=== PATIENT | female | born 1940 | race African-American/Black ===

== ENCOUNTER 2017-07-18 04:35 | Inpatient (IN) | payer OTHER, BC ==
[~2017-07-18] VITALS: Ht 160 cm; Wt 84.8 kg
[2017-07-18] VITALS (7 sets, daily range): BP systolic 126–158
[2017-07-18] MEDS ORDERED: ASPIRIN 325 MG TABLET PO ONE (05:00)
[2017-07-18] MEDS ORDERED: NITROGLYCERIN 0.4 MG TAB.SUBL SL ONE (05:15)
[2017-07-18] MEDS ORDERED: NACL 0.9% 1,000 ML IV ONE (05:15)
[2017-07-18 05:19] LABS: BASOPHILS % (AUTO) 0.7 % (0.0-2.0); EOSINOPHILS # (AUTO) 0.2 K/uL (0.0-0.4); EOSINOPHILS % (AUTO) 4.1 % (0.0-4.0); HEMATOCRIT 43.9 % (36-48); LYMPHOCYTES # (AUTO) 1.8 K/uL (1.0-5.5); LYMPHOCYTES % (AUTO) 35.1 % (20.5-51.5); MEAN CORPUSCULAR HEMOGLOBIN 28 pg (27-31); MEAN CORPUSCULAR HGB CONC 32 % (32-36); MEAN CORPUSCULAR VOLUME 89 fL (79.0-98.0); MONOCYTES # (AUTO) 0.6 K/uL (0.0-1.0); MONOCYTES % (AUTO) 10.9 % (1.7-9.3); NEUTROPHILS # (AUTO) 2.5 K/uL (1.8-7.7); NEUTROPHILS % (AUTO) 49.2 % (40.0-70.0); PLATELET COUNT (AUTO) 244 K/uL (130-430); RED BLOOD CELL COUNT(AUTO) 4.95 MIL/uL (4.2-6.2); RED CELL DISTRIBUTION WIDTH 13.8 % (9.0-15.0); WHITE BLOOD COUNT (AUTO) 5.1 K/uL (4.8-10.8)
[2017-07-18 05:32] LABS: ANION GAP 7 (5-15); CALCIUM 10.3 mg/dL (8.4-11.0); CHLORIDE 104 mmol/L (98-107); CREATININE 1.11 mg/dL (0.55-1.30); GLUCOSE 98 mg/dL (70-99); POTASSIUM 3.9 mmol/L (3.5-5.1); SODIUM SERUM 138 mmol/L (136-145); TOTAL BILIRUBIN 0.5 mg/dL (0.0-1.0); UREA NITROGEN, BLOOD 22 mg/dL (8-21)
[2017-07-18 05:33] LABS: ALANINE AMINOTRANSFERASE 181 U/L (12-78); ALBUMIN 3.4 g/dL (3.4-4.8); ASPARTATE AMINOTRANSFERASE 93 U/L (10-37)
[2017-07-18 05:58] LABS: BILIRUBIN,URINE NEGATIVE (NEGATIVE); BLOOD, URINE NEGATIVE (NEGATIVE); CLARITY/URINE CLEAR (CLEAR); COLOR,URINE YELLOW (YELLOW); GLUCOSE,URINE NEGATIVE (NEGATIVE); KETONES,URINE NEGATIVE (NEGATIVE); LEUKOCYTE ESTERASE ,URINE TRACE (NEGATIVE); NITRITE, URINE NEGATIVE (NEGATIVE); PH,URINE 5.5 (5.0-8.0); PROTEIN URINE NEGATIVE (NEGATIVE); UROBILINOGEN,URINE 0.2 (0.2-1.0)
[2017-07-18 06:05] LABS: BACTERIA,URINE FEW /HPF (None Seen); RBC,URINE 0-3 /HPF (0-3); WBC,URINE 0-3 /HPF (0-3)
[2017-07-18] MEDS ORDERED: OMEP20CA10 PO (06:08)
[2017-07-18] MEDS ORDERED: FERR-57 PO (06:08)
[2017-07-18] MEDS ORDERED: CHOL100053 PO (06:08)
[2017-07-18] MEDS ORDERED: AMLO5TAB4 PO (06:08)
[2017-07-18] MEDS ORDERED: LOSA100T11 PO (06:08)
[2017-07-18] MEDS ORDERED: LIP10 PO (06:08)
[2017-07-18] MEDS ORDERED: MORPHINE 4 MG/ML INJ. SYRINGE IVP ONE (06:30)
[2017-07-18] MEDS: traMADol HCL HCL 50 MG TABLET (ULTRAM) PO PRN ×2 (11:40→20:09)
[2017-07-18] MEDS ORDERED: ONDANSETRON HCL 4 MG/2 ML VIAL IVP PRN (11:45)
[2017-07-18] MEDS ORDERED: ACETAMINOPHEN 325 MG TABLET PO PRN (11:45)
[2017-07-18] MEDS ORDERED: ZOLPIDEM TARTRATE 5 MG TABLET PO PRN (11:45)
[2017-07-18] MEDS ORDERED: PANTOPRAZOLE SODIUM 40 MG TAB PO ONE (12:00)
[2017-07-18] MEDS: PANTOPRAZOLE SODIUM 40 MG TAB PO SCH (20:09)
[2017-07-19 06:10] LABS: BASOPHILS % (AUTO) 0.5 % (0.0-2.0); EOSINOPHILS # (AUTO) 0.1 K/uL (0.0-0.4); EOSINOPHILS % (AUTO) 2.9 % (0.0-4.0); HEMATOCRIT 40.6 % (36-48); HEMOGLOBIN 13.3 g/dL (12.0-16.0); LYMPHOCYTES # (AUTO) 1.6 K/uL (1.0-5.5); LYMPHOCYTES % (AUTO) 32.2 % (20.5-51.5); MEAN CORPUSCULAR HEMOGLOBIN 29 pg (27-31); MEAN CORPUSCULAR HGB CONC 33 % (32-36); MEAN CORPUSCULAR VOLUME 89 fL (79.0-98.0); MONOCYTES # (AUTO) 0.6 K/uL (0.0-1.0); MONOCYTES % (AUTO) 11.3 % (1.7-9.3); NEUTROPHILS # (AUTO) 2.6 K/uL (1.8-7.7); NEUTROPHILS % (AUTO) 53.1 % (40.0-70.0); PLATELET COUNT (AUTO) 242 K/uL (130-430); RED BLOOD CELL COUNT(AUTO) 4.55 MIL/uL (4.2-6.2); RED CELL DISTRIBUTION WIDTH 13.4 % (9.0-15.0); WHITE BLOOD COUNT (AUTO) 4.9 K/uL (4.8-10.8)
[2017-07-19 06:40] LABS: ALANINE AMINOTRANSFERASE 196 U/L (12-78); ANION GAP 3 (5-15); ASPARTATE AMINOTRANSFERASE 114 U/L (10-37); CALCIUM 10.2 mg/dL (8.4-11.0); CHLORIDE 105 mmol/L (98-107); CHOLESTEROL 149 mg/dL (<200); CREATININE 0.87 mg/dL (0.55-1.30); FREE T4 (FREE THYROXINE) 1.1 ng/dL (0.6-1.6); GLUCOSE 87 mg/dL (70-99); HDL CHOLESTEROL 49 mg/dL (>55); LDL CHOLESTEROL 75 mg/dL (<100); POTASSIUM 4.1 mmol/L (3.5-5.1); SODIUM SERUM 134 mmol/L (136-145); THYROID STIMULATING HORMONE 1.18 uIu/mL (0.34-4.82); TOTAL BILIRUBIN 0.6 mg/dL (0.0-1.0); TRIGLYCERIDES 112 mg/dL (30-150); UREA NITROGEN, BLOOD 13 mg/dL (8-21)
[2017-07-19 08:04] VITALS: BP_SYST 138
[2017-07-19] MEDS: PANTOPRAZOLE SODIUM 40 MG TAB PO SCH (08:43)
[2017-07-19] MEDS ORDERED: amLODIPine BESYLATE 5 MG TABLET PO SCH (09:00)
[2017-07-19] MEDS ORDERED: FERROUS SULFATE 325 MG TABLET.DR PO SCH (09:00)
[2017-07-19] MEDS ORDERED: LOSARTAN POTASSIUM 50 MG TABLET (COZAAR) PO SCH (09:00)
[2017-07-19] MEDS ORDERED: ATORVASTATIN 10 MG TABLET PO SCH (09:00)
[2017-07-19 11:42] VITALS: BP_SYST 125
[2017-07-19 11:56] VITALS: BP_SYST 125
== END 2017-07-19 12:40 | disposition home or self-care (01) | DRG 392 ==
LOC: SED 04:35 → STU 06:14
PROVIDERS: ADMIT Internal Medicine; ATTEND Internal Medicine
DX: K44.9 Diaphragmatic hernia without obstruction or gangrene (principal); E21.3 Hyperparathyroidism, unspecified; I10 Essential (primary) hypertension; E78.5 Hyperlipidemia, unspecified; K21.9 Gastro-esophageal reflux disease without esophagitis; Z96.653 Presence of artificial knee joint, bilateral; E66.9 Obesity, unspecified; T46.6X5A Adverse effect of antihyperlipidemic and antiarteriosclerotic drugs, initial encounter; Z88.0 Allergy status to penicillin; Z79.899 Other long term (current) drug therapy; Z98.42 Cataract extraction status, left eye; Z98.41 Cataract extraction status, right eye; Z82.49 Family history of ischemic heart disease and other diseases of the circulatory system; Z90.710 Acquired absence of both cervix and uterus; Z90.49 Acquired absence of other specified parts of digestive tract; Y92.89 Other specified places as the place of occurrence of the external cause; Z68.33 Body mass index [BMI] 33.0-33.9, adult; Z87.891 Personal history of nicotine dependence
CPT/HCPCS: 36415; 70450-TC; 71045; 71250-TC; 76700-TC; 80053; 80061; 81000-TC; 84439; 84443-TC; 84484; 85025; 85379; 87086; 93005; 93306; 96360; 99285

== ENCOUNTER 2021-08-04 07:38 | Inpatient (IN) | payer OTHER, BC ==
[2021-08-03 20:10] VITALS: BP_SYST 130
[~2021-08-04] VITALS: Ht 160 cm; Wt 88.7 kg
[~2021-08-04 07:38] MED LIST: AMLO5TAB4 PO; CHOL100053 PO; FERR-57 PO; LOSA100T3 PO; OMEP20CA15 PO
--- NOTE | 2021-08-04 07:40 | NUR ---
Placed in room 3 . Placed on process steward, blood pressure machine and pulse oximeter. To gown for exam. Side rails up. Report given to UZMA LEE.
[2021-08-04 07:45] VITALS: BP_SYST 153
--- NOTE | 2021-08-04 07:47 | NUR ---
ER DR. SAINZ EXAMINING PT
[2021-08-04] MEDS ORDERED: PANTOPRAZOLE SODIUM 40 MG/VIAL (PROTONIX) IVP ONE (08:00)
[2021-08-04] MEDS ORDERED: METOCLOPRAMIDE HCL 10 MG/2 ML VIAL IVP ONE (08:00)
[2021-08-04] MEDS ORDERED: NACL 0.9% 1,000 ML IV ONE (08:00)
[2021-08-04 08:10] LABS: BILIRUBIN,URINE 1+ (NEGATIVE); BLOOD, URINE 1+ (NEGATIVE); COLOR,URINE YELLOW (YELLOW); GLUCOSE,URINE NEGATIVE (NEGATIVE); KETONES,URINE 2+ (NEGATIVE); LEUKOCYTE ESTERASE ,URINE TRACE (NEGATIVE); NITRITE, URINE NEGATIVE (NEGATIVE); PROTEIN URINE 2+ (NEGATIVE); UROBILINOGEN,URINE 0.2 (0.2-1.0)
[2021-08-04 08:12] LABS: BASOPHILS # (AUTO) 0.2 K/uL (0.0-0.2); EOSINOPHILS % (AUTO) 0.4 % (0.0-4.0); HEMATOCRIT 45.9 % (36-48); HEMOGLOBIN 14.7 g/dL (12.0-16.0); LYMPHOCYTES # (AUTO) 1.4 K/uL (1.0-5.5); LYMPHOCYTES % (AUTO) 12.7 % (20.5-51.5); MEAN CORPUSCULAR HEMOGLOBIN 27 pg (27-31); MEAN CORPUSCULAR HGB CONC 32 % (32-36); MEAN CORPUSCULAR VOLUME 84 fL (79.0-98.0); MONOCYTES # (AUTO) 0.4 K/uL (0.0-1.0); NEUTROPHILS # (AUTO) 8.7 K/uL (1.8-7.7); NEUTROPHILS % (AUTO) 80.9 % (40.0-70.0); PLATELET COUNT (AUTO) 286 K/uL (130-430); RED BLOOD CELL COUNT(AUTO) 5.48 MIL/uL (4.2-6.2); RED CELL DISTRIBUTION WIDTH 15.4 % (9.0-15.0); WHITE BLOOD COUNT (AUTO) 10.7 K/uL (4.8-10.8)
[2021-08-04 08:15] LABS: CLARITY/URINE SLIGHTLY HAZY (CLEAR)
[2021-08-04 08:25] LABS: ANION GAP 10 (5-15); CALCIUM 8.6 mg/dL (8.4-11.0); CHLORIDE 96 mmol/L (98-107); CREATININE 1.32 mg/dL (0.55-1.30); GLUCOSE 109 mg/dL (70-99); POTASSIUM 3.9 mmol/L (3.5-5.1); SODIUM SERUM 132 mmol/L (136-145); UREA NITROGEN, BLOOD 13 mg/dL (8-21)
[2021-08-04 08:42] LABS: ALANINE AMINOTRANSFERASE 18 U/L (12-78); ALBUMIN 3.9 g/dL (3.4-4.8); ASPARTATE AMINOTRANSFERASE 17 U/L (10-37); LIPASE 50 U/L (73-393); TOTAL BILIRUBIN 0.6 mg/dL (0.0-1.0)
[2021-08-04 08:49] LABS: BACTERIA,URINE FEW /HPF (None Seen); WBC,URINE 0-3 /HPF (0-3)
[2021-08-04] MEDS ORDERED: ONDANSETRON HCL 4 MG/2 ML VIAL IVP ONE (09:30)
[2021-08-04] MEDS ORDERED: ASPIRIN 325 MG TABLET PO ONE (09:30)
[2021-08-04] MEDS ORDERED: ENOXAPARIN SODIUM 80 MG/0.8 ML SYRINGE SUBCUT ONE (09:30)
[2021-08-04] MEDS ORDERED: NITROGLYCERIN 1 INCH (GM) OINT. TP ONE (09:30)
[2021-08-04] MEDS ORDERED: MORPHINE 4 MG INJ. 4 MG/ML VIAL IVP ONE (09:30)
--- NOTE | 2021-08-04 09:39 | NUR ---
Admit bed requested Patient will be admitted to care of . Admitted to TELEMETRY unit. Diagnosis ABDOMINAL PAIN Inpatient (Yes or No) YES Observation (Yes or No) NO Orientation concerns or request close to nursing station (Yes or No) NO Covid Status PENDING On vent or bipap NO Isolation requirements NO Needs a sitter NO From Home (Yes or if No enter name of facility) YES Requires Dialysis (Yes or No) NO Med Rec Completed (Yes of No) YES
[2021-08-04] MEDS ORDERED: SUCR1TAB78 PO (10:04)
[2021-08-04] MEDS ORDERED: NOR10 PO (10:04)
[2021-08-04] MEDS ORDERED: LIP10 PO (10:04)
[2021-08-04] MEDS ORDERED: ONDA4TAB55 PO (10:04)
[2021-08-04] MEDS ORDERED: PRO40 PO (10:04)
--- NOTE | 2021-08-04 10:04 | NUR ---
Medication reconciliation completed with information provided by [facility] BIB PATIENT. Any prior medication reconciliation on file was reviewed and corrected.
--- NOTE | 2021-08-04 10:47 | NUR ---
Stable. VSS. Pain has decreased Has been medicated as ordered To be admitted Primary has seen Awaiting bed on floor
[2021-08-04] MEDS: NACL 0.9% 1,000 ML IV SCH ×2 (11:57→21:28)
[2021-08-04] MEDS ORDERED: ATORVASTATIN 10 MG TABLET PO ONE (12:00)
[2021-08-04] MEDS ORDERED: LOSARTAN POTASSIUM 50 MG TABLET (COZAAR) PO ONE (12:00)
[2021-08-04] MEDS: PANTOPRAZOLE SODIUM 40 MG TAB PO SCH (12:27)
[2021-08-04] MEDS: SUCRALFATE 1 GM TABLET PO SCH ×4 (12:27→21:00)
--- NOTE | 2021-08-04 15:41 | NUR ---
Stable. VSS. C/O pain substernal. MD to be called. Gastro has seen. Awaiting bed on floor.
[2021-08-04] MEDS ORDERED: ACETAMINOPHEN 325 MG TABLET PO PRN (16:15)
[2021-08-04] MEDS ORDERED: MORPHINE 2 MG/ML INJ. SYRINGE IVP PRN (16:15)
--- NOTE | 2021-08-04 16:15 | NUR ---
Pt medicated with Zofran 4mg IVP and Morphine 4 mg IVP as ordered by Dr Quinones, well tolerated.
[2021-08-04] MEDS ORDERED: ONDANSETRON HCL 4 MG/2 ML VIAL ONE (16:17)
[2021-08-04] MEDS ORDERED: MORPHINE 4 MG INJ. 4 MG/ML VIAL ONE (16:18)
[2021-08-04] MEDS: ONDANSETRON HCL 4 MG/2 ML VIAL IVP PRN (16:56)
[2021-08-04] MEDS: MORPHINE 4 MG INJ. 4 MG/ML VIAL IVP PRN ×2 (16:56→21:45)
[2021-08-04] MEDS: METOCLOPRAMIDE HCL 10 MG TABLET PO SCH ×2 (17:00→21:30)
--- NOTE | 2021-08-04 19:56 | NUR ---
ADMIT NOTE Received pt from ER with a diagnosis of abdominal pain. Admission process initiated. patient oriented to pain management, safety and call light-teach back done.
[2021-08-04 20:18] VITALS: BP_SYST 130
--- NOTE | 2021-08-04 20:50 | NUR ---
Dr. Quinones/Cardiac Diet EHR showing NPO diet. Called Dr. Quinones who stated patient should be on cardiac diet.
[2021-08-04] MEDS ORDERED: PANTOPRAZOLE SODIUM 40 MG/VIAL (PROTONIX) IVP SCH (21:00)
[2021-08-05 00:30] VITALS: BP_SYST 145
--- NOTE | 2021-08-05 05:54 | NUR ---
CONSULT: CONSULT CALLED FOR DR. OTT I SPOKE WITH MELO GARCIA REASON FOR CONSULT: EIGASTRIC PAIN REQUESTING CONSULT: DR. WILSON BLENDER CONVEYOR OPERATOR PHONE NUMBER: [phone]
--- NOTE | 2021-08-05 05:56 | NUR ---
CONSULT: CONSULT CALLED FOR DR. GRIFFIN I SPOKE WITH MELO GARCIA REASON FOR CONSULT: CHEST PAIN REQUESTING CONSULT: DR. WILSON WAD COMPRESSOR OPERATOR ADJUSTER PHONE NUMBER" [phone]
[2021-08-05] MEDS: MORPHINE 4 MG INJ. 4 MG/ML VIAL IVP PRN ×2 (06:32→18:10)
[2021-08-05] MEDS: NACL 0.9% 1,000 ML IV SCH (06:43)
[2021-08-05] MEDS: ONDANSETRON HCL 4 MG/2 ML VIAL IVP PRN (06:43)
[2021-08-05] MEDS: METOCLOPRAMIDE HCL 10 MG TABLET PO SCH ×4 (06:43→20:37)
[2021-08-05] MEDS ORDERED: SIMETHICONE 40 MG/0.6 ML ML ONE (07:07)
[2021-08-05] MEDS ORDERED: MIDAZOLAM HCL 5 MG/5 ML VIAL ONE (07:08)
[2021-08-05] MEDS ORDERED: MEPERIDINE 100 MG INJ. 100 MG/ML VIAL ONE (07:08)
[2021-08-05 07:32] LABS: ANION GAP 13 (5-15); CALCIUM 7.5 mg/dL (8.4-11.0); CHLORIDE 99 mmol/L (98-107); GLUCOSE 85 mg/dL (70-99); POTASSIUM 3.5 mmol/L (3.5-5.1); SODIUM SERUM 133 mmol/L (136-145); UREA NITROGEN, BLOOD 13 mg/dL (8-21)
[2021-08-05 07:33] LABS: BASOPHILS % (AUTO) 0.3 % (0.0-2.0); EOSINOPHILS % (AUTO) 0.5 % (0.0-4.0); LYMPHOCYTES # (AUTO) 1.6 K/uL (1.0-5.5); LYMPHOCYTES % (AUTO) 17.7 % (20.5-51.5); MEAN CORPUSCULAR HEMOGLOBIN 27 pg (27-31); MEAN CORPUSCULAR HGB CONC 33 % (32-36); MEAN CORPUSCULAR VOLUME 84 fL (79.0-98.0); MONOCYTES # (AUTO) 0.7 K/uL (0.0-1.0); MONOCYTES % (AUTO) 7.2 % (1.7-9.3); NEUTROPHILS # (AUTO) 6.7 K/uL (1.8-7.7); NEUTROPHILS % (AUTO) 74.3 % (40.0-70.0); PLATELET COUNT (AUTO) 257 K/uL (130-430); RED BLOOD CELL COUNT(AUTO) 4.79 MIL/uL (4.2-6.2); WHITE BLOOD COUNT (AUTO) 9.1 K/uL (4.8-10.8)
[2021-08-05 07:41] LABS: ALANINE AMINOTRANSFERASE 20 U/L (12-78); ALBUMIN 3.4 g/dL (3.4-4.8); ASPARTATE AMINOTRANSFERASE 19 U/L (10-37); TOTAL BILIRUBIN 0.4 mg/dL (0.0-1.0)
--- NOTE | 2021-08-05 07:43 | NUR ---
Closing Patient AOx4, unlabored breathing on room air, no signs of distress noted. Ambulated to bathroom with steady gait. Patient has been NPO since midnight for EGD. Consent signed and in chart. Patient complained of intermittent 6-10/10 substernal chest pain and nausea. Given morphine and Zofran PRN with relief. Call light in reach, fall and safety precautions maintained.
[2021-08-05 08:10] VITALS: BP_SYST 152
[2021-08-05] MEDS ORDERED: amLODIPine BESYLATE 10 MG TABLET PO SCH (09:00)
[2021-08-05] MEDS ORDERED: ATORVASTATIN 10 MG TABLET PO SCH (09:00)
[2021-08-05] MEDS ORDERED: LOSARTAN POTASSIUM 50 MG TABLET (COZAAR) PO SCH (09:00)
[2021-08-05 09:23] LABS: CHOLESTEROL 170 mg/dL (<200); HDL CHOLESTEROL 56 mg/dL (>55); LDL CHOLESTEROL 88 mg/dL (<100); TRIGLYCERIDES 116 mg/dL (30-150)
--- NOTE | 2021-08-05 10:03 | NUR ---
RECEIVED PT FROM Boris JACOBSON, PT RAYMUNDO, NO SOB, PT STATED SHE FEELS MUCH BETTER THAN BEFORE PROCEDURE. Addendum: 08/05/21 at 1004 by Gee Camacho RN SANGEETA JUNG
[2021-08-05 10:04] VITALS: BP_SYST 129
--- NOTE | 2021-08-05 10:30 | NUR ---
DR WORKMAN TALKING TO PT AFTER EGD.
[2021-08-05] MEDS: SUCRALFATE 1 GM TABLET PO SCH ×4 (11:01→20:37)
[2021-08-05] MEDS: PANTOPRAZOLE SODIUM 40 MG TAB PO SCH (11:02)
[2021-08-05] MEDS: BENZOCAINE/MENTHOL 1 EACH LOZENGE MM PRN (12:42)
[2021-08-05 17:50] VITALS: BP_SYST 120
--- NOTE | 2021-08-05 18:20 | NUR ---
pt refused to have a new iv access started, current iv access leaking. dr cowart is aware. dc order for ivfluids.
--- NOTE | 2021-08-05 19:20 | NUR ---
Received patient from AM shift Patient AAO X4, in bed on a semi fowlers position. respiration with in range, no shortness of breath, complaints of pain on the abdomen pain scale 3/10 as verbalized. Offered PRN pain medication as ordered however refused. Patient able to walk to bathroom her self independently. call light within reach. continue to monitor. Addendum: 08/06/21 at 0310 by [employer] adjunct sociology professor Received patient from AM shift Patient AAO X4, in bed on a semi fowlers position. respiration with in range, no shortness of breath, complaints of pain on the abdomen pain scale 3/10 as verbalized. Offered PRN pain medication as ordered however refused. Patient able to walk to bathroom her self independently. Still refused for IV insertion. expalined the risk and benefit. call light within reach. continue to monitor
[2021-08-06 00:11] VITALS: BP_SYST 125
[2021-08-06] MEDS: BENZOCAINE/MENTHOL 1 EACH LOZENGE MM PRN (01:15)
[2021-08-06] MEDS: METOCLOPRAMIDE HCL 10 MG TABLET PO SCH (06:40)
[2021-08-06 08:29] VITALS: BP_SYST 137
--- NOTE | 2021-08-06 11:33 | NUR ---
Patient left AMA at 08:00. Risks of leaving AMA were discussed with patient, but patient was adamant about leaving. Vitals were taken before patient left and assessment was done. Patient was stable. Neuro A/Ox4, Ambulatory, No deficits Cardiac: WNL Respiratory: Mild cough and SOB on exertion, but otherwise stable. Clear lung sounds on all abraham Cardiac: WNL GI: Abdominal pain and indigestion, patient requested pain meds, was given tylenol. : WNL Musculoskeletal: Able to ambulate short distances. Dressed herself prior to leaving AMA. Patient had friend/family pick her up and she was wheelchaired ot the front of the hospital. Patient was seen by MD prior to leaving. Patients plan is to go to [place] to be admitted.
[2021-08-06] MEDS ORDERED: traMADol HCL HCL 50 MG TABLET (ULTRAM) PO SCH (12:00)
== END 2021-08-06 09:45 | disposition left against medical advice (07) | DRG 391 ==
LOC: SED 07:38 → STU 09:35 → SMU 08-05 23:49
PROVIDERS: ADMIT Internal Medicine; ATTEND Internal Medicine
PROC: 0DB78ZX Excision of Stomach, Pylorus, Via Natural or Artificial Opening Endoscopic, Diagnostic (ICD-10-PCS; 2021-08-05)
PROC: 0DB68ZX Excision of Stomach, Via Natural or Artificial Opening Endoscopic, Diagnostic (ICD-10-PCS; 2021-08-05)
PROC: 0DB58ZX Excision of Esophagus, Via Natural or Artificial Opening Endoscopic, Diagnostic (ICD-10-PCS; principal; 2021-08-05 08:30)
DX: K44.9 Diaphragmatic hernia without obstruction or gangrene (principal); N17.0 Acute kidney failure with tubular necrosis; K22.10 Ulcer of esophagus without bleeding; K29.70 Gastritis, unspecified, without bleeding; N28.1 Cyst of kidney, acquired; M19.90 Unspecified osteoarthritis, unspecified site; Z96.653 Presence of artificial knee joint, bilateral; E78.5 Hyperlipidemia, unspecified; E66.9 Obesity, unspecified; Z53.29 Procedure and treatment not carried out because of patient's decision for other reasons; K21.9 Gastro-esophageal reflux disease without esophagitis; B19.20 Unspecified viral hepatitis C without hepatic coma; E21.3 Hyperparathyroidism, unspecified; Z20.822 Contact with and (suspected) exposure to COVID-19; I10 Essential (primary) hypertension; Z79.899 Other long term (current) drug therapy; Z85.528 Personal history of other malignant neoplasm of kidney; Z80.8 Family history of malignant neoplasm of other organs or systems; Z90.49 Acquired absence of other specified parts of digestive tract; Z90.710 Acquired absence of both cervix and uterus; Z90.5 Acquired absence of kidney; Z87.891 Personal history of nicotine dependence; Z82.49 Family history of ischemic heart disease and other diseases of the circulatory system; Z88.0 Allergy status to penicillin; Z90.722 Acquired absence of ovaries, bilateral; Z68.34 Body mass index [BMI] 34.0-34.9, adult
CPT/HCPCS: 36415; 43239; 71045; 76376; 80053; 80061; 81000; 83690; 83735; 83880; 84484; 85025; 87081; 88305; 88312; 88313; 93005; 96372; 96374; 96375; 99285; C9113; G0378; J1650; J2175; J2250; J2270; J2405; J2765; J8597